=== PATIENT | male | born 1995 | race Hispanic/Latino ===

== ENCOUNTER 2021-03-13 09:12 | Observation (INO) | payer OTHER, SELFPAY ==
[2021-03-13] MEDS ORDERED: Fentanyl 100 MCG/2 ML VIAL ONE ×5 (09:25→17:18)
[2021-03-13] MEDS ORDERED: CEFAZOLIN 1 GM VIAL ONE (09:32)
[2021-03-13] MEDS ORDERED: Boostrix 0.5 ML (Tdap) VIAL ONE (09:32)
[2021-03-13 09:35] LABS: Hemoglobin 17.3 g/dL (14.0-18.0); Mean Corpuscular Hemoglobin 29.2 pg (27.0-31.0); Mean Corpuscular Volume 83.6 fL (78.0-98.0); Mean Platelet Volume 9.6 fL (7.4-10.4); Platelet Count 249 thou/uL (130-400); RBC Distribution Width 12.5 % (11.5-14.5); Red Blood Cell (RBC) Count 5.93 mill/uL (4.70-6.10); White Blood Cell (WBC) Count 24.1 thou/uL (4.8-10.8)
[2021-03-13 09:48] LABS: Band 3 % (5-11); Eosinophils 1 % (0-10); Lymphocytes 10 % (21-51); MDiff Complete? YES; Monocytes 6 % (0-10); Neutrophil 80 % (42-75); Platelet Morphology Comment Appears Adequate; RBC Morphology Normal
[2021-03-13 09:53] LABS: ALT (SGPT) 117 U/L (8-55); AST (SGOT) 121 U/L (5-34); Albumin 4.1 g/dL (3.5-5.0); Alkaline Phosphatase 103 U/L (40-110); Anion Gap 15 mmol/L (10-20); BUN (Urea Nitrogen) 15 mg/dL (8.9-20.6); Bilirubin, Total 0.5 mg/dL (0.2-1.2); Calc. Creatinine Clearance 0 mL/min (70-130); Calcium 9.5 mg/dL (7.8-10.44); Carbon Dioxide 23 mmol/L (22-29); Chloride 104 mmol/L (98-107); Globulin 3.5 g/dL (2.4-3.5); Glucose 164 mg/dL (70-105); Potassium 3.8 mmol/L (3.5-5.1); Protein, Total 7.6 g/dL (6.0-8.3); Sodium 138 mmol/L (136-145)
[2021-03-13] MEDS ORDERED: CEFAZOLIN 2 GM in Premix Bag 1 BAG IVPB SCH (12:00)
[2021-03-13] MEDS ORDERED: hydrALAZINE 20 MG/ML VIAL SLOW IVP PRN (12:31)
[2021-03-13] MEDS ORDERED: Ondansetron PF 4 MG/2 ML Vial IVP PRN (12:31)
[2021-03-13] MEDS ORDERED: traMADol HCl 50 MG TAB PO PRN (12:34)
[2021-03-13] MEDS ORDERED: Sodium Chloride 0.9% 1,000 ML IV SCH (12:45)
[2021-03-13 13:07] LABS: SARS-CoV-2 NAA Rapid Test Not Detected (NotDetected)
[2021-03-13] MEDS ORDERED: HYDROmorphone 0.5 MG/0.5 ML SYRINGE ONE (13:47)
[2021-03-13] MEDS ORDERED: PROPOFOL 200 MG/20 ML VIAL ONE (14:30)
[2021-03-13] MEDS ORDERED: Dexamethasone 20 MG/5 ML VIAL ONE (14:30)
[2021-03-13] MEDS ORDERED: Ondansetron PF 4 MG/2 ML Vial ONE (14:30)
[2021-03-13] MEDS ORDERED: Rocuronium Bromide 10 MG/ML (10ML VIAL) ONE (14:30)
[2021-03-13] MEDS ORDERED: Glycopyrrolate 0.2 MG/ML 5 ML SYRINGE ONE (14:30)
[2021-03-13] MEDS ORDERED: Lidocaine 1% PF 5 ML VIAL ONE (14:30)
[2021-03-13] MEDS ORDERED: Iopamidol-370 76% 500 ML 1 ML ONE (16:05)
[2021-03-13] MEDS ORDERED: PACU-Morphine 4MG/ML VIAL SLOW IVP PRN (16:20)
[2021-03-13] MEDS ORDERED: Promethazine HCl 25 MG/ML VIAL IVPB PRN (16:20)
[2021-03-13] MEDS ORDERED: Promethazine HCl 25 MG/ML VIAL IM PRN (16:20)
[2021-03-13] MEDS ORDERED: HYDROmorphone 2 MG/ML VIAL SLOW IVP PRN (16:20)
[2021-03-13] MEDS ORDERED: Ondansetron HCl/PF 4 MG/2 ML Vial IVP PRN (16:20)
[2021-03-13] MEDS: Acetaminophen 325 MG TAB PO SCH ×2 (19:29→20:55)
[2021-03-13] MEDS: traMADol HCl 50 MG TAB PO SCH (20:56)
[2021-03-13] MEDS: Sodium Chloride 0.9% 1,000 ML IV SCH (20:58)
[2021-03-13] MEDS: CEFAZOLIN 2 GM in Sodium Chloride 0.9% 100 ML IVPB SCH (21:51)
[2021-03-14] LABS: Magnesium 1.7 mg/dL (1.6-2.6)
[2021-03-14] MEDS: Acetaminophen 325 MG TAB PO SCH ×3 (01:08→12:14)
[2021-03-14] MEDS: traMADol HCl 50 MG TAB PO SCH ×3 (01:08→12:13)
[2021-03-14 05:41] LABS: Phosphorus 2.1 mg/dL (2.3-4.7)
[2021-03-14 05:43] LABS: Anion Gap 13 mmol/L (10-20); BUN (Urea Nitrogen) 15 mg/dL (8.9-20.6); Calc. Creatinine Clearance 142 mL/min (70-130); Calcium 8.8 mg/dL (7.8-10.44); Carbon Dioxide 23 mmol/L (22-29); Chloride 107 mmol/L (98-107); Glucose 149 mg/dL (70-105); Potassium 4.2 mmol/L (3.5-5.1); Sodium 139 mmol/L (136-145)
[2021-03-14 05:47] LABS: #Lymphocytes 1.3 thou/uL (1.20-3.40); %Lymphocytes 7.9 % (21.0-51.0); %Monocytes 6.1 % (0.0-10.0); Hemoglobin 14.2 g/dL (14.0-18.0); Mean Corpuscular HGB CONC 33.7 g/dL (32.0-36.0); Mean Corpuscular Volume 83.2 fL (78.0-98.0); Mean Platelet Volume 9.6 fL (7.4-10.4); Platelet Count 213 thou/uL (130-400); RBC Distribution Width 12.4 % (11.5-14.5); Red Blood Cell (RBC) Count 5.07 mill/uL (4.70-6.10); White Blood Cell (WBC) Count 16.3 thou/uL (4.8-10.8)
[2021-03-14] MEDS: CEFAZOLIN 2 GM in Sodium Chloride 0.9% 100 ML IVPB SCH (06:04)
[2021-03-14] MEDS ORDERED: Magnesium 2 GM/50 ML 2 GM in Premix Bag 1 BAG IVPB SCH (08:00)
[2021-03-14] MEDS ORDERED: FLU VACC QS2021-22(6MOS UP)/PF 60 MCG/0.5 ML SYRINGE IM ONE (09:00)
[2021-03-14] MEDS ORDERED: PHOS-NAK 1 PKT PACK PO SCH (09:00)
[2021-03-14] MEDS: Sodium Chloride 0.9% 1,000 ML IV SCH (09:23)
[2021-03-14 09:44] VITALS: BP 136/85; TEMP 98
== END 2021-03-14 16:18 | disposition home or self-care (01) ==
LOC: ERS 09:12 → ERHOLD 12:31 → SURG A 12:31
PROVIDERS: ADMIT Surgery; ATTEND Surgery
PROC: 0PSG04Z Reposition Left Humeral Shaft with Internal Fixation Device, Open Approach (ICD-10-PCS; principal; 2021-03-14)
DX: S42.352A Displaced comminuted fracture of shaft of humerus, left arm, initial encounter for closed fracture (principal); S82.435A Nondisplaced oblique fracture of shaft of left fibula, initial encounter for closed fracture; R74.01 Elevation of levels of liver transaminase levels; N17.9 Acute kidney failure, unspecified; K59.00 Constipation, unspecified; Z20.822 Contact with and (suspected) exposure to COVID-19; V43.52XA Car driver injured in collision with other type car in traffic accident, initial encounter; Y92.411 Interstate highway as the place of occurrence of the external cause
CPT/HCPCS: 36415; 70450; 71045; 71260; 72125; 74177; 76000; 80048; 80053; 83735; 84100; 85025; 90471; 90715; 96374; 96375; 96376; C1713; G0378; G0390; J0690; J1100; J1170; J2405; J2704; J3010; J3475; J3490; J7050; Q9967; U0002